=== PATIENT | male | born 1945 | race Caucasian/White ===

== ENCOUNTER → 2019-08-19 14:54 | Outpatient (CLI) | payer OTHER, SELFPAY ==
--- NOTE | 2019-08-19 14:55 | DI.ECHO.S_ITS ---
[facility]---------+ [facility] +---------+ : : [address] : [place] [address] : : : : [id number] : : : : Phone: [phone]+ Echocardiogram Report + + :Name: FROYLAN MENDOZA Study Date: 08/19/2019 Height: 72 in : :[facility] Weight: 193 lb : : Gender: Male BSA: 2.1 m2 : :: 1945 Age: 74 yrs BP: 154/68 mmHg: :Reason For Study: Mitral Valve- Prolapse : : Performed By: Brenda Hernandez : :Referring: DAVON NOLAN : + + Interpretation Summary The ejection fraction is estimated to be 60-65%. Flail or severe prolapse of the mitral posterior leaflet. There is moderate to severe mitral regurgitation. Compared to the prior echo study, there has been an increase in the severity of mitral regurgitation. Recommend transesphageal echo. Procedure: A two-dimensional transthoracic echocardiogram with color flow and Doppler was performed. The study quality was technically adequate. Comparison is made with the echocardiogram of 08-27-11. The patient was in normal sinus rhythm during the exam. Left Ventricle: The left ventricle is normal in size, wall thickness, and systolic function without any focal wall motion abnormalities. The ejection fraction is estimated to be 60-65%. Left ventricular wall motion is normal. Diastolic parameters suggest a pseudonormalization pattern, consistent with probable elevated filling pressures. Right Ventricle: The right ventricle grossly appears normal in size with probable normal systolic function. Atria: The left atrium is severely dilated. Right atrial size is normal. The interatrial septum is intact with no evidence for an atrial septal defect. Mitral Valve: The mitral valve leaflets appear significantly thickened, but open well. Flail or severe prolapse of the mitral posterior leaflet. There is moderate to severe mitral regurgitation. The mitral regurgitant jet is eccentrically directed. Compared to the prior echo study, there has been an increase in the severity of mitral regurgitation. Aortic Valve: The aortic valve opens well. No aortic regurgitation is present. Tricuspid Valve: The tricuspid valve leaflets are thin and pliable. There is trace tricuspid regurgitation. The right ventricular systolic pressure is estimated to be at least 27 mmHg based on an estimated right atrial pressure of 3 mm Hg. Pulmonic Valve: The pulmonic valve is not well seen, but is grossly normal. There is trace pulmonic regurgitation. Great Vessels: The aortic root is mildly dilated. The dimensions of the ascending aorta are normal. The aortic arch is normal in size. The IVC is of normal diameter and collapses greater than 50% with a sniff. This suggests a low right atrial pressure of 3 mm Hg. Pericardium/ Pleura There is no pericardial effusion. There is no pleural effusion. MMode/2D Measurements & Calculations LVIDd: 5.6 cm Ao root diam: 3.9 cm LVIDs: 3.3 cm Aortic Jxn: 3.1 cm FS: 40.9 % asc Aorta Diam: 3.3 cm IVSd: 0.95 cm Ao Arch Diam (Prox Trans): 2.8 cm LVPWd: 0.90 cm LV daugherty. diameter/BSA (cm/m^2): 2.7 LV sys. diameter/BSA (cm/m^2): 1.6 LA dimension: 4.6 cm RA long axis: 4.5 cm LA A2 area: 35.2 cm2 RA area: 15.1 cm2 LA A4 area: 29.7 cm2 RA vol: 43.2 ml LA length (vol): 6.7 cm RA : 20.6 ml/m2 LA vol: 132.3 ml IVC diam: 1.9 cm LA vol index: 63.0 ml/m2 RVDd major: 6.1 cm RVD1 (basal): 3.5 cm RVD2 (mid): 3.0 cm Doppler Measurements & Calculations Ao V2 max: 146.6 cm/sec MV E max aston: 116.4 cm/sec Ao V2 mean: 90.4 cm/sec MV A max aston: 112.9 cm/sec Ao max P.6 mmHg MV E/A: 1.0 Ao mean P.0 mmHg Med Peak E' Aston: 6.5 cm/sec Ao V2 VTI: 26.6 cm E/E' med: 17.8 Lat Peak E' Aston: 8.2 cm/sec E/E' lat: 14.2 E/e' average: 16.0 MV dec time: 0.24 sec MV P1/2t: 69.7 msec TR max aston: 246.8 cm/sec MV P1/2t max aston: 114.0 cm/sec TR max P.4 mmHg MVA(P1/2t): 3.2 cm2 PA V2 max: 82.1 cm/sec PA V2 mean: 53.9 cm/sec PA mean P.3 mmHg PA Accel Time: 0.14 sec Reading Physician:[id number]
== END ==
PROVIDERS: PCP Family Medicine; Visit Provider Family Medicine
DX: I34.1 Nonrheumatic mitral (valve) prolapse (principal); I34.0 Nonrheumatic mitral (valve) insufficiency
CPT/HCPCS: 93306

== ENCOUNTER → 2020-08-05 14:55 | Outpatient (ROUT) | payer OTHER, SELFPAY | PROVIDERS: PCP Family Medicine; Visit Provider Dermatology | DX: L03.312 Cellulitis of back [any part except buttock and flank] (principal) | CPT/HCPCS: 87070; 87075; 87077; 87147; 87186; 87205 ==

== ENCOUNTER → 2020-08-15 11:09 | Outpatient (ROUT) | payer OTHER, SELFPAY | PROVIDERS: PCP Family Medicine; Visit Provider Dermatology | DX: L03.319 Cellulitis of trunk, unspecified (principal) | CPT/HCPCS: 87070; 87077; 87147; 87186; 87205 ==

== ENCOUNTER → 2020-11-07 12:12 | Outpatient (CLI) | payer OTHER, SELFPAY ==
[2020-11-07 13:23] LABS: Add Manual Diff / Slide Review NO; Basophils Absolute Auto 0 /uL (0-100); Basophils Percent Auto 0.4 % (0-2); Eosinophils Absolute Auto 100 /uL (0-450); Eosinophils Percent Auto 1.1 % (2-4); Hematocrit 46.3 % (41-53); Hemoglobin 15.7 g/dL (13.5-17.5); Lymphocytes Absolute Auto 1100 /uL (1100-4500); Lymphocytes Percent Auto 18.3 % (25-40); Mean Corpuscular HGB Conc 33.9 % (30-36); Mean Corpuscular Hemoglobin 32.3 PG (26-34); Mean Corpuscular Volume 95.1 fL (80-100); Monocytes Absolute Auto 500 /uL (0-900); Monocytes Percent Auto 7.9 % (3-14); Neutrophils Absolute Auto 4300 /uL (1500-7000); Neutrophils Percent Auto 72.3 % (50-75); Platelet Count 210 X10^3/uL (150-400); Red Blood Cell Count 4.87 X10^6/uL (4.5-5.9); Red Cell Distribution Width 13.9 % (11.6-14.8)
[2020-11-07 13:38] LABS: Erythrocyte Sedimentation Rate 1 MM/HR (0-15)
[2020-11-07 13:39] LABS: Alanine Aminotransferase 19 IU/L (<50); Albumin 5.1 g/dL (3.5-5.0); Alkaline Phosphatase 61 U/L (38-126); Aspartate Aminotransferase 26 IU/L (17-59); BUN Creatinine Ratio 19.5 (6-22); Bilirubin Total 0.9 mg/dL (0.2-1.3); Blood Urea Nitrogen 16 mg/dL (9-20); Calcium 9.8 mg/dL (8.4-10.2); Carbon Dioxide 26 mmol/L (22-32); Chloride 98 mmol/L (98-107); Cholesterol 228 mg/dL (140-199); Estimated Glomerular Filt Rate > 60.0 mL/min (>60); Globulin 2.6 g/dL (1.7-4.1); Glucose 112 mg/dL (80-110); HDL Cholesterol 108 mg/dL (40-60); HEMOLYSIS < 15 (0-50); LDL Cholesterol Calculated 110 mg/dL (<100); Potassium 4.2 mmol/L (3.4-5.1); Sodium 133 mmol/L (137-145); Total Protein 7.7 g/dL (6.3-8.2); Triglycerides 50 mg/dL (35-150)
[2020-11-07 13:44] LABS: C-Reactive Protein Quant < 0.5 mg/dL (<1.0)
[2020-11-07 14:05] LABS: TSH w/ Reflex to FT4 1.92 uIU/mL (0.47-4.68)
== END ==
PROVIDERS: PCP Family Medicine; Referring Provider Internal Medicine Cardiovascular Disease; Visit Provider Internal Medicine Cardiovascular Disease
DX: I34.0 Nonrheumatic mitral (valve) insufficiency (principal); I10 Essential (primary) hypertension; E78.49 Other hyperlipidemia
CPT/HCPCS: 36415; 80053; 80061; 84443; 85025; 85651; 86140; 87040

== ENCOUNTER → 2022-01-03 09:57 | Outpatient (CLI) | payer OTHER, SELFPAY ==
[2022-01-03 11:23] LABS: Add Manual Diff / Slide Review NO; Basophils Absolute Auto 0 /uL (0-100); Basophils Percent Auto 0.3 % (0-2); Eosinophils Absolute Auto 100 /uL (0-450); Eosinophils Percent Auto 1.2 % (2-4); Hematocrit 44.4 % (41-53); Hemoglobin 15.3 g/dL (13.5-17.5); Lymphocytes Absolute Auto 800 /uL (1100-4500); Lymphocytes Percent Auto 16.4 % (25-40); Mean Corpuscular HGB Conc 34.4 % (30-36); Mean Corpuscular Hemoglobin 32.9 PG (26-34); Mean Corpuscular Volume 95.7 fL (80-100); Monocytes Absolute Auto 400 /uL (0-900); Monocytes Percent Auto 8.1 % (3-14); Neutrophils Absolute Auto 3800 /uL (1500-7000); Platelet Count 250 X10^3/uL (150-400); Red Blood Cell Count 4.64 X10^6/uL (4.5-5.9); White Blood Cell Count 5.2 X10^3/uL (4.5-11.0)
[2022-01-03 12:56] LABS: Alanine Aminotransferase 20 IU/L (<50); Albumin 4.4 g/dL (3.5-5.0); Albumin Globulin Ratio 1.8 (1.0-2.8); Alkaline Phosphatase 48 U/L (38-126); Aspartate Aminotransferase 24 IU/L (17-59); BUN Creatinine Ratio 23.3 (6-22); Bilirubin Total 0.7 mg/dL (0.2-1.3); Blood Urea Nitrogen 20 mg/dL (9-20); Calcium 9.2 mg/dL (8.4-10.2); Carbon Dioxide 29 mmol/L (22-32); Chloride 101 mmol/L (98-107); Cholesterol 191 mg/dL (140-199); Estimated Glomerular Filt Rate > 60 mL/min (>60); Globulin 2.4 g/dL (1.7-4.1); Glucose 106 mg/dL (80-110); HDL Cholesterol 84 mg/dL (40-60); HEMOLYSIS < 15 (0-50); LDL Cholesterol Calculated 95 mg/dL (<100); Potassium 4.5 mmol/L (3.4-5.1); Sodium 135 mmol/L (137-145); Total Protein 6.8 g/dL (6.3-8.2); Triglycerides 61 mg/dL (35-150)
[2022-01-03 13:24] LABS: TSH w/ Reflex to FT4 2.09 uIU/mL (0.47-4.68)
[2022-01-03 14:05] LABS: Prostate Specific Antigen 0.317 ng/mL (0.10-4.00)
== END ==
PROVIDERS: Specialist; PCP Family Medicine; Referring Provider Family Medicine; Visit Provider Family Medicine
DX: E78.5 Hyperlipidemia, unspecified (principal); R53.83 Other fatigue; N13.9 Obstructive and reflux uropathy, unspecified; N40.0 Benign prostatic hyperplasia without lower urinary tract symptoms
CPT/HCPCS: 36415; 80053; 80061; 84153; 84443; 85025

== ENCOUNTER → 2022-03-18 12:05 | Outpatient (CLI) | payer OTHER, SELFPAY ==
--- NOTE | 2022-03-18 12:07 | DI.RAD.S_ITS ---
PROCEDURE: XR FOOT LT MIN 3V INDICATIONS: fall/injury TECHNIQUE: 3 views of the foot were acquired. COMPARISON: [facility], CR, FOOT 3V LEFT, 05/23/2007, 15:02. [facility] [place], CR, XR ANKLE 3+ VIEWS LEFT, 01/11/2020, 13:37. FINDINGS: Bones: No fractures or dislocations. No suspicious bony lesions. Soft tissues: No tibiotalar joint effusion. Achilles tendon appears normal. IMPRESSION: No visualized acute fracture or dislocation. However, if clinical concern and/or pain persist, short interval imaging followup in 7-10 days is recommended, as occult injury cannot be definitively excluded. Dictated by: Debbie Schwarz M.D. on 03/18/2022 at 12:45 Approved by: Debbie Schwarz M.D. on 03/18/2022 at 12:50
== END ==
PROVIDERS: PCP Family Medicine; Referring Provider Family Medicine; Visit Provider Family Medicine
DX: S99.922A Unspecified injury of left foot, initial encounter (principal); W19.XXXA Unspecified fall, initial encounter
CPT/HCPCS: 73630